=== PATIENT | male | born 1940 | race Caucasian/White ===

== ENCOUNTER 2020-01-15 15:34 | Outpatient (RCR) | payer MEDICARE, SELFPAY ==
--- NOTE | 2020-01-15 17:00 | PTOPEVAL ---
Thank you for referring this patient to [facility]. Please review, sign, date and return this plan of care [facility]. I agree with and certify that the following plan of care is medically necessary. Referring Physician Date Admitting Provider: Attending Provider: Jai Mclaughlin, Referring Provider: *FERMÍN Outpatient Evaluation Start: 01/15/20 16:01 Freq: Status: Active Protocol: Document 01/15/20 16:00 J (Rec: 01/15/20 16:59 [facility] [id number]) Therapy Assessment Status Assessment Status Assessment Status Evaluation Outpatient Past Medical History Past Medical History Reason Unable to Obtain see patient intake form Evaluation Information Problem Diagnosis L hip pain Onset 01/15/20 Additional Evaluation Detail LEFS = Subjective Information patient reports he has been Query Text:As Reported By Patient/ having pain in the L hip for Family about 2 years. he reports his pain has been getting worse since a heart valve surgery he had done. he reports he has fallen on the L hip over a year ago. he reports he has had x-rays of the L hip (does not know the results). he reports he has had several injuries to himself through his working years. he reports he has difficulty with walking , stairs, standing, and crossing his L LE. he reports he has a history of L knee surgery in the past. patient reports majority of his pain is in the lateral hip and in the mm's of the thigh. he reports he has pain in the groin with crossing of his L LE. Prior Level of Function Comments Additional Prior Level of Function patient has been progressively Comments worsening with regards to the pain in the L hip. he reports he was having buttock pain and sat on a heating pad to help reduce this pain. he reports he did get an injection to the L lateral hip that worked only for a few weeks. Pain Assessment Timing of Pain Assessment Timing of Pain Assessm
== END 2020-02-12 13:05 | disposition home or self-care (01) ==
LOC: CHSPT 15:34
PROVIDERS: PCP Family Medicine; Visit Provider Family Medicine
DX: M25.552 Pain in left hip (principal)
CPT/HCPCS: 97014; 97110; 97140; 97161; G0283